=== PATIENT | male | born 1980 | race Caucasian/White ===

== ENCOUNTER 2019-08-01 19:19 | Emergency (ER) | payer OTHER ==
--- NOTE | 2019-08-01 19:45 | EDM.PDOC ---
ED HPI GENERAL MEDICAL PROBLEM - General Chief Complaint: Laceration Stated Complaint: LACERATION TO HEAD Time Seen by Provider: 08/01/19 19:19 Source of Information: Reports: Patient History Limitations: Reports: No Limitations - History of Present Illness INITIAL COMMENTS - FREE TEXT/NARRATIVE: Pt. states that he was installing insulation in his garage. He states that he struck his head on one of the supporting ribs of the garage door, causing a superficial laceration to the head. Denies any LOC. No headache. Denies confusion, blurred vision, lightheadedness, nausea or vomiting. He states that his tetanus is UTD. Onset: Today Location: Reports: Head ED ROS GENERAL - Review of Systems Review Of Systems: See Below Constitutional: Reports: No Symptoms HEENT: Reports: Other (see above) Respiratory: Reports: No Symptoms Cardiovascular: Reports: No Symptoms Endocrine: Reports: No Symptoms GI/Abdominal: Reports: No Symptoms. Denies: Nausea, Vomiting : Reports: No Symptoms Musculoskeletal: Reports: No Symptoms Skin: Reports: No Symptoms Neurological: Reports: Headache Psychiatric: Reports: No Symptoms Hematologic/Lymphatic: Reports: No Symptoms Immunologic: Reports: No Symptoms ED EXAM, GENERAL - Physical Exam Exam: See Below Exam Limited By: No Limitations General Appearance: Alert, WD/WN, No Apparent Distress Eye Exam: Bilateral Eye: EOMI, PERRL Head: Other (superficial abrasion noted to scalp. It is quite shallow and will not require repair.) Respiratory/Chest: No Respiratory Distress, Lungs Clear, Normal Breath Sounds, No Accessory Muscle Use, Chest Non-Tender Cardiovascular: Normal Peripheral Pulses, Regular Rate, Rhythm, No Edema, No Gallop, No JVD, No Murmur, No Rub Extremities: Normal Inspection, Normal Range of Motion, Non-Tender, No Pedal Edema, Normal Capillary Refill Neurological: Alert, Oriented, CN II-XII Intact, Normal Cognition, Normal Gait, Normal Reflexes, No Motor/Sensory Deficits Psychiatric: Normal Affect, Normal Mood Skin Exam: Warm, Dry, Intact, Normal Color, No Rash Departure - Departure Time of Disposition: 19:40 Disposition: Home, Self-Care 01 Clinical Impression: Abrasion - Discharge Information Instructions: Abrasion, [id number] Referrals: Vasyl Brooks PA-C [Primary Care Provider] - Forms: ED Department Discharge Additional Instructions: Keep area dry for 24 hours. Return if there is any redness, swelling, or discharge from the area. - Assessment/Plan Plan: Keep area dry for 24 hours. Return if there is any redness, swelling, or discharge from the area.
== END 2019-08-01 19:40 | disposition home or self-care (01) ==
LOC: VM.ED 19:19
DX: S00.01XA Abrasion of scalp, initial encounter (principal); W22.8XXA Striking against or struck by other objects, initial encounter
CPT/HCPCS: 99283

== ENCOUNTER 2021-04-17 08:13 | Emergency (ER) | payer OTHER ==
[2021-04-17 08:45] LABS: PTT,PARTIAL THROMBOPLSTIN TIME 25.7 SEC (25.6-32.8)
--- NOTE | 2021-04-17 08:46 | EDM.PDOC ---
ED HPI GENERAL MEDICAL PROBLEM - General Stated Complaint: NUMBNESS ON LEFT SIDE Time Seen by Provider: 04/17/21 08:13 Source of Information: Reports: Patient, RN, RN Notes Reviewed History Limitations: Reports: No Limitations - History of Present Illness INITIAL COMMENTS - FREE TEXT/NARRATIVE: Patient is a 41-year-old male who presents to ER with complaint of facial numbness, difficulty focusing, and "different" vision in the left periphery. States numbness and decreased sensation to the left shoulder, neck, and left side of face. He states he does not feel "numb" to these areas, but when assessed right and left at the same time, he feels decreased sensation on the left. States that he felt his eyes were "tired" when he looks to the periphery. Denies blurred vision or blindness, but has vague c/o trying to look to the left periphery. He states he was on a call with his son this morning at approximately 630 when the symptoms began. Patient denies any numbness or tingling in the extremities, upper or lower, bilaterally. Denies headache, chest pains, shortness of breath. Also denies any recent illness, fever chills, nausea, vomiting, diarrhea. States he has had some increased stress recently. Patient admits to taking medications for anxiety, depression, as well as other meds. Patient denies any lung, gastric, or cardiac history in himself. Denies any stroke or cardiac events in family history that he is aware of. NIH=1 Onset: Today, Sudden - Related Data Allergies Allergy/AdvReac Type Severity Reaction Status Date / Time No Known Allergies Allergy Verified 08/01/19 20:40 Home Meds: Home Meds . [No Known Home Meds] 08/01/19 [History] Past Medical History - Past Health History Medical/Surgical History: Denies Medical/Surgical History ED ROS GENERAL - Review of Systems Review Of Systems: Comprehensive ROS is negative, except as noted in HPI. ED EXAM, NEURO - Physical Exam Exam: See Below Exam Limited By: No Limitations General Appearance: Alert, WD/WN, No Apparent Distress, Anxious Eye Exam: Left Eye: Vision Changes (Pt states blurred in left periphery), Bilateral Eye: EOMI, Normal Inspection Ears: Normal External Exam, Normal Canal, Hearing Grossly Normal Nose: Normal Inspection, Normal Mucosa, No Blood Throat/Mouth: Normal Inspection, Normal Lips, Normal Teeth, Normal Gums, Normal Oropharynx, Normal Voice, No Airway Compromise Head Exam: Atraumatic, Normocephalic Neck: Normal Inspection, Supple, Non-Tender, Full Range of Motion Respiratory/Chest: No Respiratory Distress, Lungs Clear, Normal Breath Sounds, No Accessory Muscle Use, Chest Non-Tender Cardiovascular: Normal Peripheral Pulses, Regular Rate, Rhythm, No Edema, No Gallop, No JVD, No Murmur, No Rub GI/Abdominal: Normal Bowel Sounds, Soft, Non-Tender, No Organomegaly, No Distention, No Abnormal Bruit, No Mass (Male) Exam: Deferred Rectal (Males) Exam: Deferred Neurological: Alert, Normal Mood/Affect, Normal Dorsiflexion, CN II-XII Intact, Normal Plantar Flexion, Normal Gait, Normal Reflexes, No Motor/Sensory Deficits, Oriented x 3 Back Exam: Normal Inspection, Full Range of Motion Extremities: Normal Inspection, Normal Range of Motion, Non-Tender, No Pedal Edema, Normal Capillary Refill Psychiatric: Normal Affect, Normal Mood, Anxious Skin Exam: Warm, Dry, Intact, Normal Color, No Rash #1 Interpretation EKG Date: 04/17/21 Time: 08:30 Rhythm: NSR Rate (Beats/Min): 87 [place]: Normal P-Wave: Present QRS: Normal ST-T: Normal QT: Normal Comparison: NA - No Prior EKG Course - Orders/Labs/Meds Orders: Active Orders 24 hr Category Date Time Status EKG Documentation Completion [RC] STAT Care 04/17/21 09:53 Active Labs: Laboratory Tests 04/17/21 04/17/21 04/17/21 Range/Units 08:18 08:25 08:25 WBC 4.4 (4.0-10.0) x10^3/uL RBC 5.65 (4.5-6.0) x10^6/uL Hgb 16.7 (14.0-18.0) g/dL Hct 48.1 (40.0-52.0) % MCV 85.1 (78.0-93.0) fL MCH 29.6 (26.0-32.0) pg MCHC 34.7 (32.0-36.0) g/dL RDW Coeff of Osmany 13.7 (10.0-15.0) % Plt Count 281 (130-400) x10^3/uL Neut % (Auto) 45.6 L (50.0-80.0) % Lymph % (Auto) 38.3 (25.0-50.0) % [place] % (Auto) 14.0 H (2.0-11.0) % Eos % (Auto) 1.6 (0.0-4.0) % Baso % (Auto) 0.5 (0.2-1.2) % PT 10.8 (9.9-12.5) SEC INR 1.0 L (2.0-3.5) APTT 25.7 (25.6-32.8) SEC Sodium (136-145) mmol/L Potassium (3.5-5.1) mmol/L Chloride (98-107) mmol/L Carbon Dioxide (21-32) mmol/L Anion Gap (5-15) mmol/L BUN (7-18) mg/dL Creatinine (0.70-1.30) mg/dL Est Cr Clr Drug Dosing Estimated GFR (MDRD) Glucose (70-99) mg/dL POC Glucose 98 (70-99) mg/dL Calcium (8.5-10.1) mg/dL Troponin I High Sens (<=76) ng/L 04/17/21 Range/Units 08:25 WBC (4.0-10.0) x10^3/uL RBC (4.5-6.0) x10^6/uL Hgb (14.0-18.0) g/dL Hct (40.0-52.0) % MCV (78.0-93.0) fL MCH (26.0-32.0) pg MCHC (32.0-36.0) g/dL RDW Coeff of [place]smany (10.0-15.0) % Plt Count (130-400) x10^3/uL Neut % (Auto) (50.0-80.0) % Lymph % (Auto) (25.0-50.0) % [place] % (Auto) (2.0-11.0) % Eos % (Auto) (0.0-4.0) % Baso % (Auto) (0.2-1.2) % PT (9.9-12.5) SEC INR (2.0-3.5) APTT (25.6-32.8) SEC Sodium 140 (136-145) mmol/L Potassium 4.0 (3.5-5.1) mmol/L Chloride 102 (98-107) mmol/L Carbon Dioxide 31 (21-32) mmol/L Anion Gap 11.0 (5-15) mmol/L BUN 13 (7-18) mg/dL Creatinine 1.3 (0.70-1.30) mg/dL Est Cr Clr Drug Dosing TNP Estimated GFR (MDRD) > 60 Glucose 94 (70-99) mg/dL POC Glucose (70-99) mg/dL Calcium 9.4 (8.5-10.1) mg/dL Troponin I High Sens 6 (<=76) ng/L Meds: Medications Discontinued Medications Generic Name Dose Route Start Last Admin Trade Name Freq PRN Reason Stop Dose Admin Lorazepam 0.5 mg 04/17/21 09:38 04/17/21 09:45 Lorazepam 2 Mg/Ml Sdv IVPUSH 04/17/21 09:39 0.5 mg ONETIME ONE Administration - Radiology Interpretation Free Text/Narrative:: Head CT wo contrast: No acute findings See rad report - Re-Assessments/Exams Free Text/Narrative Re-Assessment/Exam: 04/17/21 10:20 Lorazepam 0.5mg given to the patient. He states some improvement, but feeling tired and dizzy from the medication. Labs and diagnostics discussed with the patient and . Explained that his symptoms are quite vague, and I am not inclined to treat for Marshall's Palsy at this time. He states understanding. Patient is highly encouraged to return to the ER with any changes. Also encouraged to follow up with his primary care facility this week. Patient and state understanding and agree with the plan. Departure - Departure Time of Disposition: 10:14 Disposition: Home, Self-Care 01 Condition: Good Clinical Impression: Numbness and tingling of left side of face, Stroke-like symptoms - Discharge Information *PRESCRIPTION DRUG MONITORING PROGRAM REVIEWED*: No *COPY OF PRESCRIPTION DRUG MONITORING REPORT IN PATIENT MICHAEL: No Referrals: Monique Matson MD [Primary Care Provider] - Additional Instructions: Please return to the ER with any worsening of symptoms, or development of new symptoms Follow up with your primary care facility this week Rest today - My Orders Last 24 Hours: My Active Orders 04/17/21 09:53 EKG Documentation Completion [RC] STAT - Assessment/Plan Last 24 Hours: My Active Orders 04/17/21 09:53 EKG Documentation Completion [RC] STAT
[2021-04-17 08:49] LABS: CHLORIDE,CL 102 mmol/L (98-107); SODIUM,NA 140 mmol/L (136-145)
--- NOTE | 2021-04-17 09:02 | CT ---
[id number] CT/CT Head Stroke Protocol EXAM: CT Head Stroke Protocol CLINICAL DATA: STROKE CODE. COMPARISON STUDY: None FINDINGS: No intracranial hemorrhage, extra-axial fluid collection, mass, or acute ischemia. Soft tissues are unremarkable. Paranasal sinuses and mastoid air cells are clear. IMPRESSION: No acute intracranial findings. Óscar John DO 04/17/21 0901 Thank you for allowing us to participate in the care of your patient.
[2021-04-17] MEDS ORDERED: LORazepam 2 MG/ML SDV IVPUSH ONE (09:38)
== END 2021-04-17 10:25 | disposition home or self-care (01) ==
LOC: VM.ED 08:13
DX: R20.0 Anesthesia of skin (principal)
CPT/HCPCS: 70450; 80048; 82947; 84484; 85025; 85610; 85730; 93005; 93010; 96374; 99284; 99284-25; J2060

== ENCOUNTER 2022-09-07 01:00 | Emergency (ER) | payer BC ==
[2022-09-07] MEDS ORDERED: Lidocaine 1% 5 ML VIAL INJECT ONE (01:14)
[2022-09-07] MEDS ORDERED: cefTRIAXone 2 GM Vial IVPUSH ONE ×2 (01:20→21:45)
[2022-09-07] MEDS ORDERED: Sodium Chloride 0.9% 10 ML Syringe FLUSH PRN (01:20)
== END 2022-09-07 01:37 | disposition home or self-care (01) ==
LOC: VM.ED 01:00 → SUPCPDRO 01:00 → VM.ED 01:37
DX: L03.114 Cellulitis of left upper limb (principal); L02.414 Cutaneous abscess of left upper limb
CPT/HCPCS: 10060; 87070; 87077; 87147; 87186; 96374; 99283; J0696